=== PATIENT | female | born 1945 | race Caucasian/White ===

== ENCOUNTER 2020-03-06 05:25 | Inpatient (IN) | payer MEDICARE, OTHER ==
[2020-02-29 11:00] LABS: ABSOLUTE EOSINOPHILS # (AUTO) 0.3 10^3/uL (0.0-0.6); ABSOLUTE LYMPHOCYTES (AUTO) 1.4 10^3/uL (0.5-4.7); ABSOLUTE MONOCYTES (AUTO) 0.4 10^3/uL (0.1-1.4); ABSOLUTE NEUT (AUTO) 6.5 10^3/uL (1.7-8.2); BASOPHILS % (AUTO) 0.4 % (0-2); EOSINOPHILS % (AUTO) 3.4 % (0-6); HEMATOCRIT 33.3 % (36.0-47.0); HEMOGLOBIN 11.1 g/dL (12.0-15.5); LYMPHOCYTES % (AUTO) 15.7 % (13-45); MEAN CORPUSCULAR HEMOGLOBIN 30.2 pg (27.0-33.4); MEAN CORPUSCULAR HGB CONC 33.2 g/dL (32.0-36.0); MEAN CORPUSCULAR VOLUME 91 fl (80-97); MONOCYTES % (AUTO) 5.1 % (3-13); PLATELET COUNT 286 10^3/uL (150-450); RED BLOOD COUNT 3.67 10^6/uL (3.72-5.28); RED CELL DISTRIBUTION WIDTH 15.1 % (11.5-14.0); SEGMENTED NEUTROPHILS % (AUTO) 75.4 % (42-78); TOTAL CELLS COUNTED % (AUTO) 100 %; WHITE BLOOD COUNT 8.7 10^3/uL (4.0-10.5)
[2020-02-29 11:08] LABS: APPEARANCE,URINE SLIGHTLY-CLOUDY; BILIRUBIN,URINE NEGATIVE (NEGATIVE); COLOR,URINE YELLOW; GLUCOSE, URINE NEGATIVE (NEGATIVE); KETONES,URINE NEGATIVE (NEGATIVE); LEUKOCYTE ESTERASE,URINE LARGE (NEGATIVE); NITRITE,URINE NEGATIVE (NEGATIVE); PROTEIN,URINE NEGATIVE (NEGATIVE); URINE SPECIFIC GRAVITY 1.015; UROBILINOGEN,URINE NEGATIVE mg/dL (<2.0)
[2020-02-29 11:19] LABS: ANION GAP 10 (5-19); BLOOD UREA NITROGEN 21 mg/dL (7-20); CALCIUM 9.2 mg/dL (8.4-10.2); CARBON DIOXIDE 29 mmol/L (22-30); CHLORIDE 100 mmol/L (98-107); GLUCOSE 96 mg/dL (75-110); POTASSIUM 3.3 mmol/L (3.6-5.0)
--- NOTE | 2020-02-29 12:21 | RADIOLOGY REPORT (SQ) ---
EXAM DESCRIPTION: CHEST PA/LATERAL IMAGES COMPLETED DATE/TIME: 02/29/2020 11:04 am REASON FOR STUDY: PRE-OP COMPARISON: None. EXAM PARAMETERS: NUMBER OF VIEWS: two views TECHNIQUE: Digital Frontal and Lateral radiographic views of the chest acquired. RADIATION DOSE: NA LIMITATIONS: none FINDINGS: LUNGS AND PLEURA: No opacities, masses or pneumothorax. No pleural effusion. MEDIASTINUM AND HILAR STRUCTURES: No masses or contour abnormalities. HEART AND VASCULAR STRUCTURES: Heart normal size. No evidence for failure. BONES: No acute findings. HARDWARE: None in the chest. OTHER: No other significant finding. IMPRESSION: NO SIGNIFICANT RADIOGRAPHIC FINDING IN THE CHEST. TECHNICAL DOCUMENTATION: JOB ID: [id number] 2010 [email or web address]- All Rights Reserved Reading location - IP/workstation name: [email or web address]
--- NOTE | 2020-02-29 13:56 | EKG REPORT ---
SEVERITY:- ABNORMAL ECG - SINUS RHYTHM GLENDA, CONSIDER BIATRIAL ABNORMALITIES NONSPECIFIC INTRAVENTRICULAR CONDUCTION DELAY MINIMAL ST DEPRESSION, ANTEROLATERAL LEADS : Confirmed by: Juan Jose Okeefe MD 29-Feb-2020 13:55:07
[~2020-03-06 05:25] MED LIST: CEFAZOLIN 2 GM/D5W RTU 2 GM/50 ML RTUPB IV ONE; CEFAZOLIN 2 GM/D5W RTU 2 GM/50 ML RTUPB IV PRN; LACTATED RINGERS 1000 ML IV PRN; LIDOCAINE 0.5% INJ-PF (5 MG/ML) 50 ML SDV SUBCUT PRN
[2020-03-06 06:18] LABS: URINE AMPHETAMINES SCREEN NEGATIVE; URINE COCAINE SCREEN NEGATIVE; URINE MARIJUANA (THC) SCREEN NEGATIVE; URINE METHADONE SCREEN NEGATIVE; URINE PHENCYCLIDINE SCREEN NEGATIVE
[2020-03-06 06:22] LABS: URINE BARBITURATES SCREEN UNCONFIRMED POSITIVE; URINE BENZODIAZEPINES SCREEN UNCONFIRMED POSITIVE
[2020-03-06] MEDS ORDERED: FENTANYL CITRATE INJ/PF 250 MCG/5 ML AMPULE ONE (06:55)
[2020-03-06] MEDS ORDERED: KETAMINE HCL INJ 500 MG/10 ML VIAL ONE (06:55)
[2020-03-06] MEDS ORDERED: EPHEDRINE SULFATE INJ 50 MG/1 ML AMPULE ONE (06:55)
[2020-03-06] MEDS ORDERED: HYDROMORPHONE HCL INJ/PF 2 MG/ML AMPULE ONE (06:56)
[2020-03-06] MEDS ORDERED: PROPOFOL 1,000 MG/100 ML INFUS..BTL IV ONE (06:56)
[2020-03-06] MEDS ORDERED: DEXMEDETOMIDINE INJ 80 MCG/20 ML VIAL IV ONE (06:56)
[2020-03-06] MEDS ORDERED: PROPOFOL INJ 200 MG/20 ML VIAL IV ONE (06:57)
[2020-03-06] MEDS ORDERED: BUPIVACAINE INJ/PF LIPOSOME/PF 266 MG/20 ML SDV ONE (07:25)
[2020-03-06] MEDS ORDERED: HEPARIN SOD (PORCINE) 1,000 UNIT/ML 10 ML VIAL ONE (07:25)
[2020-03-06] MEDS ORDERED: BUPIVACAINE HCL 0.5 % INJ/PF 30 ML SDV ONE (07:25)
[2020-03-06] MEDS ORDERED: BACITRACIN INJ 50,000 UNIT VIAL ONE ×2 (07:25→10:33)
[2020-03-06] MEDS ORDERED: VANCOMYCIN HCL INJ 1000 MG VIAL ONE (10:27)
[2020-03-06] MEDS ORDERED: FENTANYL CITRATE INJ/PF 100 MCG/2 ML AMPUL IV PRN ×3 (11:35)
[2020-03-06] MEDS ORDERED: PROMETHAZINE HCL INJ 25 MG/1 ML VIAL IV PRN ×2 (11:35)
[2020-03-06] MEDS ORDERED: MEPERIDINE HCL/PF INJ 25 MG/1 ML DISP.SYRIN IV PRN (11:35)
[2020-03-06] MEDS ORDERED: ONDANSETRON HCL INJ/PF 4 MG/2 ML SDV IV PRN (11:35)
[2020-03-06] MEDS ORDERED: OXYCODONE-ACETAMINOPHEN 5-325 MG TABLET PO PRN ×2 (11:35)
[2020-03-06] MEDS ORDERED: DIPHENHYDRAMINE HCL 50 MG/ML VIAL IV PRN ×2 (11:35→12:28)
[2020-03-06] MEDS ORDERED: MORPHINE SULFATE 10 MG/ML INJ IV PRN ×2 (11:35→12:26)
[2020-03-06] MEDS ORDERED: HYDROMORPHONE HCL INJ/PF 2 MG/ML AMPULE IV PRN (11:36)
--- NOTE | 2020-03-06 12:16 | Operative Report ---
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 Status post central decompression L2-3, L3-4, L4-5 with bilateral foraminotomies at every level OPERATION: Central decompressive laminectomy L2-3, L3-4, L4-5 with bilateral foraminotomies at every level SURGEON: RICHAR KANG 1ST ADMINISTRATIVE OFFICER: PRASHANTH DUBON ANESTHESIA: GA COMPLICATIONS: None ESTIMATED BLOOD LOSS: 600 cc of blood loss patient is given back 300 cc of Cell Saver PROCEDURE: The patient is brought into the room and placed under anesthesia and had a Akers catheter placed at the beginning of the case which is removed at the end of the case. The patient received 2 g of Ancef and a surgical timeout was performed. The patient was placed in the prone position on the Segun table with a Britton frame attachment. The Britton frame was turned up to open up the interspaces posteriorly. Lateral C-arm fluoroscopy is used to marilu the appropriate levels. After completion of prepping and draping having SCDs and a warming blanket placed on the patient already, a midline incision is carried down electrocautery was used to maintain hemostasis. The lumbodorsal fascia is incised on both sides of spinous processes down onto the lamina of L2 down to L5. The spinous processes of L2 and L3 and L4 are resected. Then the microscope was brought in under the microscope the bur is used to remove a significant part of the lamina and then regular and pneumatic Kerrisons are utilized to carry out central decompression and lateral recess decompression at L2-3 and L3-4 and L4- 5. After carrying out the decompression the extent of the decompression was verified using nerve hooks and the lateral C-arm fluoroscopy to verify that L2-3 down to L4-5 was decompressed centrally. No epidural bleeders or cerebrospinal fluid leakage is noted. The wound is then irrigated with a liter of bacitracin irrigation. The wound is reapproximated the fascia with 0 Vicryl and then the subcu with 2-0 Vicryl in a subcuticular closure with 3-0 Monocryl. The wounds dressed in benzoin Steri-Strips 4 x 4 and tape. Please note this procedure could not have been done without the assistance of Jarred Dubon working under the microscope carry out decompression and protecting the dura.
[2020-03-06] MEDS ORDERED: RINGERS SOLUTION,LACTATED 1,000 ML IV PRN (12:19)
[2020-03-06] MEDS ORDERED: ACETAMINOPHEN 650 MG SUPP.RECT PR PRN (12:28)
[2020-03-06] MEDS ORDERED: DIPHENHYDRAMINE HCL 25 MG CAPSULE PO PRN (12:28)
[2020-03-06] MEDS ORDERED: CYCLOBENZAPRINE HCL 10 MG TABLET PO PRN (12:28)
[2020-03-06] MEDS ORDERED: ACETAMINOPHEN SOLN 325 MG/10.15 ML UDCUP PO PRN (12:28)
[2020-03-06] MEDS ORDERED: MAGNESIUM HYDROXIDE SUSP 30 ML UDCUP PO PRN (12:28)
[2020-03-06] MEDS ORDERED: DIAZEPAM 5 MG TABLET PO PRN (12:28)
[2020-03-06] MEDS ORDERED: PROMETHAZINE HCL 25 MG TABLET PO PRN (12:28)
[2020-03-06] MEDS ORDERED: OXYCODONE HCL IR 5 MG TABLET PO SCH (12:30)
[2020-03-06] MEDS ORDERED: METHOCARBAMOL INJ/PF 1000 MG/10 ML SDV ONE (12:43)
[2020-03-06] MEDS ORDERED: IBUPROFEN 800 MG TABLET ONE (13:38)
[2020-03-06] MEDS: CEFAZOLIN SODIUM 2 GM in DEXTROSE 5%-WATER 100 ML IV SCH ×2 (13:42→21:33)
[2020-03-06] MEDS: IBUPROFEN 800 MG TABLET PO SCH ×2 (13:45→21:31)
--- NOTE | 2020-03-06 13:50 | RADIOLOGY REPORT (SQ) ---
EXAM DESCRIPTION: NO CHG FLUORO; SPINE SINGLE VIEW IMAGES COMPLETED DATE/TIME: 03/06/2020 1:09 pm REASON FOR STUDY: LUMBAR DECOMPRESSION MULTIPLE LEVELS ASSISTED WITH FLUORO IN OR COMPARISON: None. FLUOROSCOPY TIME: 0.8 minutes 3 Images saved to PACS LIMITATIONS: None. PROCEDURE: Lumbar decompression assisted with fluoro FINDINGS: Images from fluoro document the procedure. IMPRESSION: Lumbar decompression assisted with fluoro. Refer to operative note for further informat ion. COMMENT: PQRS 6045F: Fluoroscopy time of the procedure is documented in the report. TECHNICAL DOCUMENTATION: JOB ID: [id number] 2010 [email or web address]- All Rights Reserved Reading location - IP/workstation name: [email or web address]
--- NOTE | 2020-03-06 13:50 | RADIOLOGY REPORT (SQ) ---
EXAM DESCRIPTION: NO CHG FLUORO; SPINE SINGLE VIEW IMAGES COMPLETED DATE/TIME: 03/06/2020 1:09 pm REASON FOR STUDY: LUMBAR DECOMPRESSION MULTIPLE LEVELS ASSISTED WITH FLUORO IN OR COMPARISON: None. FLUOROSCOPY TIME: 0.8 minutes 3 Images saved to PACS LIMITATIONS: None. PROCEDURE: Lumbar decompression assisted with fluoro FINDINGS: Images from fluoro document the procedure. IMPRESSION: Lumbar decompression assisted with fluoro. Refer to operative note for further informat ion. COMMENT: PQRS 6045F: Fluoroscopy time of the procedure is documented in the report. TECHNICAL DOCUMENTATION: JOB ID: [id number] 2010 [email or web address]- All Rights Reserved Reading location - IP/workstation name: [email or web address]
[2020-03-06] MEDS ORDERED: CEFAZOLIN 2 GM/D5W RTU 2 GM/50 ML RTUPB IV SCH (14:00)
[2020-03-06] MEDS ORDERED: LIDOCAINE 2% INJ-PF (20 MG/ML) 2 ML AMPUL ONE (14:19)
[2020-03-06] MEDS ORDERED: SUCCINYLCHOLINE CHLORIDE INJ 200 MG/10 ML VIAL ONE (14:19)
[2020-03-06] MEDS ORDERED: DEXAMETHASONE SOD PHOSPHATE INJ 4 MG/1 ML VIAL ONE (14:19)
[2020-03-06] MEDS ORDERED: ONDANSETRON HCL INJ/PF 4 MG/2 ML SDV ONE (14:19)
[2020-03-06] MEDS ORDERED: PHENYLEPHRINE HCL INJ/PF 10 MG/1 ML SDV ONE (14:19)
[2020-03-06] MEDS ORDERED: OXYCODONE-ACETAMINOPHEN 5-325 MG TABLET ONE (14:33)
[2020-03-06] MEDS ORDERED: ROPINIROLE HCL 25 MG PO SCH (17:04)
[2020-03-06] MEDS ORDERED: (PENDING PHARMACY ID) (Alprazolam [Alprazolam] 1 MG) PO SCH (17:04)
[2020-03-06] MEDS: SENNOSIDES/DOCUSATE 8.6-50 MG 1 EACH TABLET PO SCH (18:34)
[2020-03-06] MEDS: FAMOTIDINE 20 MG TABLET PO SCH (18:34)
[2020-03-06] MEDS ORDERED: ALPRAZOLAM 0.5 MG TABLET PO PRN (19:21)
[2020-03-06] MEDS: GABAPENTIN 100 MG CAPSULE PO SCH (21:31)
[2020-03-06] MEDS ORDERED: ROPINIROLE HCL 2 MG TABLET PO SCH (22:00)
[2020-03-06] MEDS: ACETAMINOPHEN 325 MG TABLET PO PRN (23:16)
[2020-03-07] MEDS: HYDROCODONE/ACETAMINOPHEN 5-325 MG TABLET PO PRN ×2 (04:12→12:27)
[2020-03-07] MEDS: IBUPROFEN 800 MG TABLET PO SCH (05:55)
[2020-03-07] MEDS: GABAPENTIN 100 MG CAPSULE PO SCH (05:56)
[2020-03-07 06:07] LABS: HEMATOCRIT 25.1 % (36.0-47.0); HEMOGLOBIN 8.6 g/dL (12.0-15.5); MEAN CORPUSCULAR HEMOGLOBIN 30.6 pg (27.0-33.4); MEAN CORPUSCULAR HGB CONC 34.4 g/dL (32.0-36.0); MEAN CORPUSCULAR VOLUME 89 fl (80-97); PLATELET COUNT 225 10^3/uL (150-450); RED BLOOD COUNT 2.82 10^6/uL (3.72-5.28); RED CELL DISTRIBUTION WIDTH 14.7 % (11.5-14.0)
[2020-03-07] MEDS ORDERED: HYDROCHLOROTHIAZIDE 25 MG TABLET PO SCH (08:00)
--- NOTE | 2020-03-07 09:04 | Discharge Summary ---
Discharge Summary (SDC) - Discharge Final Diagnosis: L2-L5 Decompression and laminotomies Date of Surgery: 03/06/20 Condition: Good Referrals: RICHAR KANG MD [ASSOCIATE] - 04/01/20 1:50 pm Discharge Diet: Regular Respiratory Treatments at Home: Incentive Spirometer Discharge Activity: Activity As Tolerated Home Care Assistance: Home Health Activities Provided by Home Health Agency: Physical Therapy, Occupational Therapy Report the Following to Your Physician Immediately: Shortness of Breath, Nausea, Vomiting, Increase in Pain, Fever over 101 Degrees, Unusual Bleeding
[2020-03-07] MEDS ORDERED: MULTIVITAMIN TABLET PO SCH (10:00)
[2020-03-07] MEDS ORDERED: POLYETHYLENE GLYCOL 3350 POWDER 17 GM/1 PACKET PO SCH (10:00)
[2020-03-07] MEDS: ACETAMINOPHEN 325 MG TABLET PO PRN (10:05)
[2020-03-07] MEDS: SENNOSIDES/DOCUSATE 8.6-50 MG 1 EACH TABLET PO SCH (10:05)
[2020-03-07] MEDS: FAMOTIDINE 20 MG TABLET PO SCH (10:06)
[2020-03-07 12:04] VITALS: BP 172/88
[2020-03-08] MEDS ORDERED: BISACODYL 5 MG TABEC PO PRN (05:00)
[2020-03-08] MEDS ORDERED: BISACODYL 10 MG SUPP.RECT PR PRN (05:00)
== END 2020-03-07 12:15 | disposition home or self-care (01) | DRG 519 ==
LOC: INOR 05:25 → EDSTATUS 07:30 → 4N 16:37
PROVIDERS: ADMIT Orthopaedic Surgery; ATTEND Orthopaedic Surgery
PROC: 00NY0ZZ Release Lumbar Spinal Cord, Open Approach (ICD-10-PCS; principal; 2020-03-06 07:30)
DX: M48.062 Spinal stenosis, lumbar region with neurogenic claudication (principal); F33.1 Major depressive disorder, recurrent, moderate; M51.36 Other intervertebral disc degeneration, lumbar region; E66.9 Obesity, unspecified; F41.9 Anxiety disorder, unspecified; I10 Essential (primary) hypertension
CPT/HCPCS: 00630; 36415; 71046; 72020; 80048; 80307; 81001; 84132; 85025; 85027; 87070; 87635; 93005; 93010; 94799; C9290; C9803; J0330; J0690; J1100; J1170; J1644; J2370; J2405; J2704; J2800; J3010; J3370; J3490; J7060